=== PATIENT | male | born 1990 | race Caucasian/White ===

== ENCOUNTER 2019-01-05 03:12 | Emergency (ER) | payer SELFPAY, MEDICAID ==
[2019-01-05] MEDS: IBUPROFEN 800 MG TAB PO (04:06)
== END 2019-01-05 05:31 | disposition home or self-care (01) ==
LOC: E/R 03:12
DX: S00.83XA Contusion of other part of head, initial encounter (principal); S93.402A Sprain of unspecified ligament of left ankle, initial encounter; Y04.0XXA Assault by unarmed brawl or fight, initial encounter
CPT/HCPCS: 70450; 73610; 99284-25